=== PATIENT | female | born 1990 | race Caucasian/White ===

== ENCOUNTER 2018-07-04 22:58 | Emergency (ER) | payer OTHER, SELFPAY ==
[~2018-07-04] VITALS: Ht 160 cm; Wt 75.0 kg
--- NOTE | 2018-07-04 23:11 | NUR ---
BECKY. REPORT RECEIVED FROM EMS. +ETOH AT HOME. PT VOMITTED PEDIATRICIAN. PT'S AOX4. RESPS EVEN AND UNLABORED. BP/SPO2 MONITORS IN PLACE. CALL LIGHT WITHIN REACH.
[2018-07-04] MEDS ORDERED: ONDANSETRON ODT 4 MG ONE (23:20)
[2018-07-04] MEDS ORDERED: ONDANSETRON ODT 4 MG PO ONE (23:30)
--- NOTE | 2018-07-05 00:02 | NUR ---
PT MEDICATED PER EMAR. PT TOLERATED WELL. PT'S AOX4. RESPS EVEN AND UNLABORED.
--- NOTE | 2018-07-05 00:31 | NUR ---
PT SLEEPING IN [facility]. RESPS EVEN AND UNLABORED. BP/SPO2 MONITORS IN PLACE. CALL LIGHT WITHIN REACH.
[2018-07-05 01:30] VITALS: BP 90/49
--- NOTE | 2018-07-05 01:30 | NUR ---
PT STILL SLEEPING IN [facility]. RESPS EVEN AND UNLABORED. FAMILY AT BEDSIDE. BP/SPO2 MONITORS IN PLACE. CALL LIGHT WITHIN REACH.
--- NOTE | 2018-07-05 02:50 | NUR ---
PT GIVEN DC INSTRUCTIONS. PT'S AOX4. RESPS EVEN AND UNLABORED. PT WHEELED TO DC WITH HER FAMILY MEMBER. NO ACUTE DISTRESS AT DC.
== END 2018-07-05 02:51 | disposition home or self-care (01) ==
LOC: ED 07-05 01:24
DX: F10.120 Alcohol abuse with intoxication, uncomplicated (principal)
CPT/HCPCS: 99283; Q0162